=== PATIENT | female | born 1945 | race Hispanic/Latino ===

== ENCOUNTER → 2018-09-26 | Outpatient (CLI) | payer SELFPAY | END | disposition home or self-care (01) | LOC: OIH 14:24 | PROVIDERS: ATTEND Internal Medicine Cardiovascular Disease | DX: Z13.6 Encounter for screening for cardiovascular disorders (principal) | CPT/HCPCS: 75571 ==

== ENCOUNTER → 2019-05-05 | Outpatient (CLI) | payer OTHER | END | disposition home or self-care (01) | LOC: RAH 10:00 | PROVIDERS: ATTEND Internal Medicine | DX: K57.30 Diverticulosis of large intestine without perforation or abscess without bleeding (principal); N32.89 Other specified disorders of bladder; I63.89 Other cerebral infarction; J96.90 Respiratory failure, unspecified, unspecified whether with hypoxia or hypercapnia; Z90.710 Acquired absence of both cervix and uterus; Z90.49 Acquired absence of other specified parts of digestive tract; Z93.1 Gastrostomy status | CPT/HCPCS: 74176 ==